=== PATIENT | male | born 1980 | race Caucasian/White ===

== ENCOUNTER 2021-07-05 08:00 | Emergency (ER) | payer OTHER ==
[~2021-07-05] VITALS: Ht 182.9 cm; Wt 108.9 kg
[2021-07-05] MEDS ORDERED: CRESTOR10 MG PO (08:13)
[2021-07-05] MEDS ORDERED: EFFIENT10 MG PO (08:13)
[2021-07-05] MEDS ORDERED: ZESTRIL2.5 MG PO (08:13)
[2021-07-05] MEDS ORDERED: TOPROL XL25 M1 PO (08:13)
[2021-07-05] MEDS ORDERED: BAYER THERAPY325 MG PO (08:14)
[2021-07-05] MEDS ORDERED: GLUMETZA500 MG PO (08:20)
== END 2021-07-05 16:07 | disposition home or self-care (01) ==
LOC: ER 08:00
DX: R10.9 Unspecified abdominal pain (principal); K76.0 Fatty (change of) liver, not elsewhere classified